=== PATIENT | female | born 1970 | race Caucasian/White ===

== ENCOUNTER 2019-01-08 14:51 | Emergency (ER) | payer OTHER, MEDICAID, SELFPAY ==
[2019-01-08 15:06] VITALS: BP 139/82; PULSE 61; RESP 16; O2SAT 96; BMI 29.2
--- NOTE | 2019-01-08 15:12 | DI.RAD.S_ITS ---
PROCEDURE: XR CHEST 1V INDICATIONS: chest pain TECHNIQUE: One view of the chest was acquired. COMPARISON: [facility], , CHEST 1 VIEW, 10/08/2014, 18:09. FINDINGS: Surgical changes and devices: None. Lungs and pleura: Lungs are clear. Ill-defined nodular opacity projecting over the right midlung probably superimposition of rib shadows No pleural effusions or pneumothorax. Mediastinum: Mediastinal contours appear normal. Heart size is normal. Bones and chest wall: No suspicious bony lesions. Overlying soft tissues appear unremarkable. IMPRESSION: No acute disease. Ill-defined nodular appearance projecting in the right midlung probably superimposition of shadows although this could be confirmed with PA and lateral chest radiographs. Dictated by: Anthony Dutton M.D. on 01/08/2019 at 15:32 Approved by: Anthony Dutton M.D. on 01/08/2019 at 15:34
--- NOTE | 2019-01-08 15:12 | DI.US.S_ITS ---
PROCEDURE: US ABDOMEN LIMITED INDICATIONS: RIGHT UPPER QUADRANT PAIN FOR 2 WEEKS TECHNIQUE: Real-time focused scanning was performed of the abdomen, with image documentation. COMPARISON: None. FINDINGS: The liver demonstrates increased size. The liver demonstrates generalized increased echogenicity. This decreases ultrasound sensitivity for detection of hepatic masses. Focal fatty sparing can be seen adjacent to the gallbladder. No findings of gallstones or sludge are seen. The gallbladder wall is not thickened, measuring 3 mm or less. No specific pericholecystic fluid is seen. The sonographic Chavez sign is negative. There is no biliary dilatation, the common bile duct measures 4-5 mm. The visualized pancreas is unremarkable. IMPRESSION: The gallbladder demonstrates a normal sonographic appearance. No biliary dilatation is seen. Prominent, fatty liver. Dictated by: Robert Stone M.D. on 01/08/2019 at 14:50 Approved by: Robert Stone M.D. on 01/08/2019 at 14:51
--- NOTE | 2019-01-08 15:19 | ED.ABDPAIN ---
HPI - Abdominal Pain <GARLAND Jefferson - Last Filed: 01/08/19 21:37> General Chief Complaint: Abdominal Pain Stated Complaint: right side abdominal pain x2 wks sent by [facility] Time Seen by Provider: 01/08/19 14:57 Source: patient Mode of arrival: ambulatory Limitations: no limitations History of Present Illness HPI narrative: Patient is a 48-year-old healthy female presents to the emergency department today complaining of right upper quadrant pain for the past 2 weeks. She states it is a dull 3/10 pain that is better when she sits straight up, she denies any aggravating symptoms such as eating. She also complains of left intermittent substernal chest pain that was a 2/10 that would spontaneously occur lasting 1-2 minute and then resolved, she states this pain happen for 3 days about 1 week ago and she has not had any chest pain signs. She also reports associated alternating constipation and diarrhea. Patient states that she has been remodeling her house for the past few months and has been breathing in a lot of fumes and paint chemicals. She denies any vision changes, neck pain, sore throat, eye discharge, coughing, shortness of breath, chest pain at this time, vomiting, nausea, fevers, chills or swelling of her legs. Patient was tearful during history and physical as she stated she was ?feeling like a hypochondriac and now she feels a lot better that she came to the emergency department ?. MD complaint: abdominal pain Onset (ago): week(s) Pain Consistency: constant Location: RUQ Radiation: none Relieving factors: other Exacerbating factors: nothing Related Data Allergies Allergy/AdvReac Type Severity Reaction Status Date / Time codeine [CODEINE] Allergy Unknown Verified 01/08/19 15:06 Review of Systems <GARLAND Jefferson - Last Filed: 01/08/19 21:37> Review of Systems REVIEW OF SYSTEMS: GENERAL: Denies fever, chills, malaise, or wt. loss. HENT: No head trauma, sore throat, or dysphagia. EYES: No loss of vision, double vision, eye pain, or irritation. CARDIOVASCULAR: Complains of chest pain, see HPI.. RESPIRATORY: No shortness of breath or cough. GASTROINTESTINAL: Complains of RUQ abdominal pain, see HPI GENITOURINARY: No flank pain, urinary incontinence, hesitancy, frequency, or dysuria. No vaginal discharge or dyspareunia. Denies concerns for STIs MUSCULOSKELETAL: No pain, weakness, or trauma. INTEGUMENTARY: No rash, lesions, or pruritus. NEURO: No numbness, tingling, memory loss, confusion, or headaches. PSYCH: No behavior or mood changes. PFSH <GARLAND Jefferson - Last Filed: 01/08/19 21:37> Medical History No significant medical problems (Acute) Social History Smoking Status: Never smoker Social History Smoking Status: Never smoker Exam <GARLAND Jefferson - Last Filed: 01/08/19 21:37> Initial Vital Signs Initial Vital Signs: Vital Signs Pulse Rate 61 01/08/19 15:06 Respiratory Rate 16 01/08/19 15:06 Blood Pressure 139/82 01/08/19 15:06 Pulse Oximetry 96 01/08/19 15:06 PHYSICAL EXAMINATION: GENERAL: Well groomed, alert, and cooperative. Tearful during examination. Answers questions promptly and appropriately. Vital signs noted. HENT: Normocephalic, atraumatic. Hearing intact. Oral mucosa is pink and moist. Oropharynx exhibits slight erythema consult are not visible. EYES: PERRLA, conjunctiva pink, sclera white, no periorbital swelling. CARDIOVASCULAR: S1 and S2 sounds normal. Regular rate and rhythm, no murmurs, clicks, or bruits. No pedal edema. RESPIRATORY: Normal respiratory rate, trachea midline, airway patent. No stridor, nasal flaring or accessory muscle use. Lungs are clear in all kirk without wheeze, rhonchi, or crackles. GASTROINTESTINAL: Bowel sounds normoactive. Abdomen is soft, pain was not reproduced for aggravated with palpation abdominal cavity especially right upper quadrant. No organomegaly, no palpable masses. GENITALURINARY: No flank tenderness. MUSCULOSKELETAL: No tenderness to palpation of ribs, sternum, or spine. Normal gait and coordination. Equal tone and mass bilaterally. EXTREMITIES: CMS intact, no pedal edema. SKIN: Warm, dry, soft, appropriate color for ethnicity. No lesions, rashes, or wounds. NEURO: Alert and Oriented X 3. Good coordination. No ataxia, or sensory deficits, or cognitive issues. PSYCH: Appropriate affect and mood. <Kristy Mitchell DO - Last Filed: 01/09/19 07:44> Initial Vital Signs Initial Vital Signs: Vital Signs Pulse Rate 61 01/08/19 15:06 Respiratory Rate 16 01/08/19 15:06 Blood Pressure 139/82 01/08/19 15:06 Pulse Oximetry 96 01/08/19 15:06 Course <GARLAND Jefferson - Last Filed: 01/08/19 21:37> Course Narrative: Patient states she was feeling slightly better after administration of Toradol, she states she feels significantly relieved to the the test results came back needed. Orders Ordered: Discontinued Medications Ketorolac Tromethamine (Toradol) 30 mg IV NOW ONE Stop: 01/08/19 17:11 Last Admin: 01/08/19 17:18 Dose: 30 mg Vital Signs - 8 hr 01/08/19 15:06 01/08/19 16:00 01/08/19 18:03 Pulse Rate 61 53 L 55 L Respiratory Rate 16 16 18 Blood Pressure 139/82 130/82 Blood Pressure [Left Arm] 154/88 H Pulse Oximetry 96 95 97 <Kristy Mitchell DO - Last Filed: 01/09/19 07:44> Orders Ordered: Discontinued Medications Ketorolac Tromethamine (Toradol) 30 mg IV NOW ONE Stop: 01/08/19 17:11 Last Admin: 01/08/19 17:18 Dose: 30 mg Vital Signs - 8 hr 01/08/19 15:06 01/08/19 16:00 01/08/19 18:03 Pulse Rate 61 53 L 55 L Respiratory Rate 16 16 18 Blood Pressure 139/82 130/82 Blood Pressure [Left Arm] 154/88 H Pulse Oximetry 96 95 97 MDM - Abdominal Pain <GARLAND Jefferson - Last Filed: 01/08/19 21:37> Medical Records Attestation: I reviewed the patient's medical records. Lab Data Attestation: I reviewed the patient's lab results. Result diagrams: 01/08/19 15:35 01/08/19 15:35 Lab Results 01/08/19 01/08/19 01/08/19 Range/Units 15:35 15:35 15:45 WBC 7.6 (4.5-11.0) X10^3/uL RBC 4.61 (4.0-5.2) X10^6/uL Hgb 13.9 (12.0-16.0) g/dL Hct 41.7 (36-46) % MCV 90.3 (80-100) fL MCH 30.2 (26-34) PG MCHC 33.4 (30-36) % RDW 12.8 (11.6-14.8) % Plt Count 330 (150-400) X10^3/uL Neut % (Auto) 58.6 (50-75) % Lymph % (Auto) 30.0 (25-40) % Emery % (Auto) 8.0 (3-14) % Eos % (Auto) 2.4 (2-4) % Baso % (Auto) 1.0 (0-2) % Neut # (Auto) 4400 (8111-6623) /uL Lymph # (Auto) 2300 (3098-5287) /uL Emery # (Auto) 600 (0-900) /uL Eos # (Auto) 200 (0-450) /uL Baso # (Auto) 100 (0-100) /uL Sodium 140 (137-145) mmol/L Potassium 4.0 (3.4-5.1) mmol/L Chloride 103 (98-107) mmol/L Carbon Dioxide 28 (22-32) mmol/L BUN 12 (7-17) mg/dL Creatinine 0.50 L (0.52-1.04) mg/dL Estimated GFR > 60.0 (>60) mL/min BUN/Creatinine Ratio 24.0 H (6-22) Glucose 102 H (70-100) mg/dL Calcium 9.4 (8.4-10.2) mg/dL Total Bilirubin 1.5 H (0.2-1.3) mg/dL AST 29 (14-36) IU/L ALT 40 (9-52) IU/L Alkaline Phosphatase 33 L (38-126) U/L Total Creatine Kinase 59 (30-135) U/L CK-MB (CK-2) TNP CK-MB (CK-2) Rel Index TNP Troponin I < 0.012 (0.01-0.034) ng/mL Total Protein 7.2 (6.3-8.2) g/dL Albumin 4.4 (3.5-5.0) g/dL Globulin 2.8 (1.7-4.1) g/dL Albumin/Globulin Ratio 1.6 (1.0-2.8) Lipase 104 (23-300) U/L Urine RBC 1-5/hpf (0-5/HPF) Urine WBC 1-5/hpf (0-5/HPF) Ur Squamous Epith Cells 0-1 /hpf (0-5/HPF) Amorphous Sediment 1+ Urine Bacteria Few (2-10) H (None) Urine Mucus 1+ H (Negative) Ur Culture Indicated? Specimen cultured Point of care testing: Urine Dip Bedside Urine Glucose Negative Bedside Urine Bilirubin - Negative Bedside Urine Ketone +/- 5 Urine Specific [place] 1.020 Bedside Urine Occult Blood + Bedside Urine pH 6.5 Bedside Urine Protein - Negative Bedside Urine Urobilinogen - Negative Bedside Urine Nitrite - Negative Bedside Urine Leukocytes ++ 125 Esterase Imaging Data AP Chest XR: Radiologist's impression: [address] [address] XRay Report Signed Patient: Cookie Mireles [facility]#: [id number] : 1970Acct:[id number] Age/Sex: 48 / FDate of Service: 01/08/19 Loc: ED Accession Number: [id number] Procedure: XR chest 1V Ordering Provider: Amie Adorno PROCEDURE: XR CHEST 1V INDICATIONS: chest pain TECHNIQUE: One view of the chest was acquired. COMPARISON: [facility] , CHEST 1 VIEW, 10/08/2014, 18:09. FINDINGS: Surgical changes and devices: None. Lungs and pleura: Lungs are clear. Ill-defined nodular opacity projecting over the right midlung probably superimposition of rib shadows No pleural effusions or pneumothorax. Mediastinum: Mediastinal contours appear normal. Heart size is normal. Bones and chest wall: No suspicious bony lesions. Overlying soft tissues appear unremarkable. IMPRESSION: No acute disease. Ill-defined nodular appearance projecting in the right midlung probably superimposition of shadows although this could be confirmed with PA and lateral chest radiographs. Dictated by: Anthony Dutton M.D. on 01/08/2019 at 15:32 Approved by: Anthony Dutton M.D. on 01/08/2019 at 15:34 Lateral Chest: Radiologist's impression: [address] [address] XRay Report Signed Patient: Cookie Mireles [facility]#: [id number] : 1970Acct:[id number] Age/Sex: 48 / FDate of Service: 01/08/19 Loc: ED Accession Number: [id number] Procedure: XR chest 1V Ordering Provider: Amie Adorno PROCEDURE: XR CHEST 1V INDICATIONS: Lateral view to r/o nodule seen on AP view TECHNIQUE: One view of the chest was acquired. COMPARISON: [facility] , XR CHEST 1V, 01/08/2019, 15:16. FINDINGS: Nodular density noted in near the inferior margin of the right scapula is not readily apparent on the lateral view. No effusion or obvious pneumothorax is evident. No compression deformities of the thoracic spine are appreciated. IMPRESSION: Nodular density is not apparent on the lateral view. A chest CT is recommended for further evaluation. Dictated by: Parminder Lopez M.D. on 01/08/2019 at 16:15 Approved by: Parminder Lopez M.D. on 01/08/2019 at 16:17 US - abdomen: Radiologist's impression: [address] [address] Ultrasound Report Signed Patient: Cookie Mireles [facility]#: [id number] : 1970Acct:[id number] Age/Sex: 48 / FDate of Service: 01/08/19 Loc: ED Accession Number: [id number] Procedure: US abdomen limited Ordering Provider: Amie Adorno PROCEDURE: US ABDOMEN LIMITED INDICATIONS: RIGHT UPPER QUADRANT PAIN FOR 2 WEEKS TECHNIQUE: Real-time focused scanning was performed of the abdomen, with image documentation. COMPARISON: None. FINDINGS: The liver demonstrates increased size. The liver demonstrates generalized increased echogenicity. This decreases ultrasound sensitivity for detection of hepatic masses. Focal fatty sparing can be seen adjacent to the gallbladder. No findings of gallstones or sludge are seen. The gallbladder wall is not thickened, measuring 3 mm or less. No specific pericholecystic fluid is seen. The sonographic Chavez sign is negative. There is no biliary dilatation, the common bile duct measures 4-5 mm. The visualized pancreas is unremarkable. IMPRESSION: The gallbladder demonstrates a normal sonographic appearance. No biliary dilatation is seen. Prominent, fatty liver. Dictated by: Robert Stone M.D. on 01/08/2019 at 14:50 Approved by: Robret Stone M.D. on 01/08/2019 at 14:51 ECG Data Interpretation: Sinus bradycardia, rate 59, TN interval 131, QTC 401, no ST depression or ST elevation, no abnormal T-wave inversion. No ectopy. EKG was also viewed by DR. Mitchell. Patient later had a 2nd episode of chest pain so an EKG was repeated: Sinus bradycardia, rate 56, TN interval 130, QTC [address] elevation or ST depression, no T-wave abnormal T, no ectopy. EKG was also viewed by Dr. Mitchell. MDM Narrative Medical decision making narrative: Differential includes costochondritis/musculoskeletal pain (most likely due to patient's report of construction and remodeling over the past few months, lack of other finding), less likely cholecystitis (negative ultrasound, normal labs, pain is not made worse with eating), less likely acute coronary syndrome (normal EKG, normal troponin, chest pain does not appear cardiac in nature from history, patient has very little risk factors). While the patient was diagnosed with fatty liver, I do not think this is the source is does not usually cause pain.. Strict return precautions given and follow-up instructions discussed. <Kristy Mitchell, DO - Last Filed: 01/09/19 07:44> Lab Data Lab Results 01/08/19 01/08/19 01/08/19 Range/Units 15:35 15:35 15:45 WBC 7.6 (4.5-11.0) X10^3/uL RBC 4.61 (4.0-5.2) X10^6/uL Hgb 13.9 (12.0-16.0) g/dL Hct 41.7 (36-46) % MCV 90.3 (80-100) fL MCH 30.2 (26-34) PG MCHC 33.4 (30-36) % RDW 12.8 (11.6-14.8) % Plt Count 330 (150-400) X10^3/uL Neut % (Auto) 58.6 (50-75) % Lymph % (Auto) 30.0 (25-40) % Emery % (Auto) 8.0 (3-14) % Eos % (Auto) 2.4 (2-4) % Baso % (Auto) 1.0 (0-2) % Neut # (Auto) 4400 (4113-1584) /uL Lymph # (Auto) 2300 (8568-6458) /uL Emery # (Auto) 600 (0-900) /uL Eos # (Auto) 200 (0-450) /uL Baso # (Auto) 100 (0-100) /uL Sodium 140 (137-145) mmol/L Potassium 4.0 (3.4-5.1) mmol/L Chloride 103 (98-107) mmol/L Carbon Dioxide 28 (22-32) mmol/L BUN 12 (7-17) mg/dL Creatinine 0.50 L (0.52-1.04) mg/dL Estimated GFR > 60.0 (>60) mL/min BUN/Creatinine Ratio 24.0 H (6-22) Glucose 102 H (70-100) mg/dL Calcium 9.4 (8.4-10.2) mg/dL Total Bilirubin 1.5 H (0.2-1.3) mg/dL AST 29 (14-36) IU/L ALT 40 (9-52) IU/L Alkaline Phosphatase 33 L (38-126) U/L Total Creatine Kinase 59 (30-135) U/L CK-MB (CK-2) TNP CK-MB (CK-2) Rel Index TNP Troponin I < 0.012 (0.01-0.034) ng/mL Total Protein 7.2 (6.3-8.2) g/dL Albumin 4.4 (3.5-5.0) g/dL Globulin 2.8 (1.7-4.1) g/dL Albumin/Globulin Ratio 1.6 (1.0-2.8) Lipase 104 (23-300) U/L Urine RBC 1-5/hpf (0-5/HPF) Urine WBC 1-5/hpf (0-5/HPF) Ur Squamous Epith Cells 0-1 /hpf (0-5/HPF) Amorphous Sediment 1+ Urine Bacteria Few (2-10) H (None) Urine Mucus 1+ H (Negative) Ur Culture Indicated? Specimen cultured Point of care testing: Urine Dip Bedside Urine Glucose Negative Bedside Urine Bilirubin - Negative Bedside Urine Ketone +/- 5 Urine Specific [place] 1.020 Bedside Urine Occult Blood + Bedside Urine pH 6.5 Bedside Urine Protein - Negative Bedside Urine Urobilinogen - Negative Bedside Urine Nitrite - Negative Bedside Urine Leukocytes ++ 125 Esterase Discharge Plan Departure Patient Disposition: Home Clinical Impression: Abdominal pain Qualifiers: Abdominal location: generalized Qualified Code(s): R10.84 - Generalized abdominal pain Discharge Date/Time: 01/08/19 18:03 Interventions: ED Discharge Assessment Last Done: 01/08/19 18:03 Instructions: DI for Abdominal Pain-Adult Activity Restrictions/Additional Instructions: Thank you for entrusting me with your care today. As discussed, your lab and ultrasound work showed that you have a fatty liver, please follow up with her primary care provider for further testing if needed. Your EKG, urinalysis, and chest x-ray did not show any acute findings. Return to the emergency department if you experience severe chest pain, shortness of breath, syncope, high fevers, severe abdominal pain, or uncontrollable vomiting. <Kristy Mitchell, - Last Filed: 01/09/19 07:44> Cosign ED Attending [place]ger Attestation: I was immediately available in the department for consultation. Documentation has been reviewed. I agree with assessment and plan.
[2019-01-08 15:45] LABS: Add Manual Diff / Slide Review NO; Basophils Absolute Auto 100 /uL (0-100); Eosinophils Absolute Auto 200 /uL (0-450); Eosinophils Percent Auto 2.4 % (2-4); Hematocrit 41.7 % (36-46); Hemoglobin 13.9 g/dL (12.0-16.0); Lymphocytes Absolute Auto 2300 /uL (1100-4500); Mean Corpuscular HGB Conc 33.4 % (30-36); Mean Corpuscular Hemoglobin 30.2 PG (26-34); Mean Corpuscular Volume 90.3 fL (80-100); Monocytes Absolute Auto 600 /uL (0-900); Neutrophils Absolute Auto 4400 /uL (1500-7000); Neutrophils Percent Auto 58.6 % (50-75); Platelet Count 330 X10^3/uL (150-400); Red Blood Cell Count 4.61 X10^6/uL (4.0-5.2); Red Cell Distribution Width 12.8 % (11.6-14.8); White Blood Cell Count 7.6 X10^3/uL (4.5-11.0)
[2019-01-08 16:00] VITALS: BP 154/88; PULSE 53; RESP 16; O2SAT 95
[2019-01-08 16:02] LABS: Alanine Aminotransferase 40 IU/L (9-52); Albumin 4.4 g/dL (3.5-5.0); Albumin Globulin Ratio 1.6 (1.0-2.8); Alkaline Phosphatase 33 U/L (38-126); Aspartate Aminotransferase 29 IU/L (14-36); Bilirubin Total 1.5 mg/dL (0.2-1.3); Blood Urea Nitrogen 12 mg/dL (7-17); Calcium 9.4 mg/dL (8.4-10.2); Carbon Dioxide 28 mmol/L (22-32); Chloride 103 mmol/L (98-107); Creatine Kinase 59 U/L (30-135); Estimated Glomerular Filt Rate > 60.0 mL/min (>60); Globulin 2.8 g/dL (1.7-4.1); Glucose 102 mg/dL (70-100); HEMOLYSIS < 15 (0-50); Lipase 104 U/L (23-300); Sodium 140 mmol/L (137-145); Total Protein 7.2 g/dL (6.3-8.2)
[2019-01-08 16:12] LABS: Troponin I < 0.012 ng/mL (0.01-0.034)
--- NOTE | 2019-01-08 16:56 | DI.RAD.S_ITS ---
PROCEDURE: XR CHEST 1V INDICATIONS: Lateral view to r/o nodule seen on AP view TECHNIQUE: One view of the chest was acquired. COMPARISON: [facility], CR, XR CHEST 1V, 01/08/2019, 15:16. FINDINGS: Nodular density noted in near the inferior margin of the right scapula is not readily apparent on the lateral view. No effusion or obvious pneumothorax is evident. No compression deformities of the thoracic spine are appreciated. IMPRESSION: Nodular density is not apparent on the lateral view. A chest CT is recommended for further evaluation. Dictated by: Parminder Lopez M.D. on 01/08/2019 at 16:15 Approved by: Parminder Lopez M.D. on 01/08/2019 at 16:17
[2019-01-08] MEDS: KETOROLAC 60 MG/2 ML VIAL 30 MG IV (17:18)
[2019-01-08 17:20] LABS: RBC Urine 1-5/HPF (0-5/HPF); Squamous Epithelial Cell Urine 0-1 /HPF (0-5/HPF); WBC Urine 1-5/HPF (0-5/HPF)
[2019-01-08 17:21] LABS: Amorphous Sediment Urine 1+; Bacteria Urine Few (2-10); Culture Indicated Urine Specimen Cultured; Mucus Urine 1+ (Negative)
--- NOTE | 2019-01-08 17:27 | PC.NURSE ---
Patient began complaining of mild left sided chest discomfort worse with deep breaths. GARLAND benito, 2nd EKG ordered at this time.
[2019-01-08 18:03] VITALS: BP 130/82; PULSE 55; RESP 18; O2SAT 97
== END 2019-01-08 18:03 | disposition home or self-care (01) ==
PROVIDERS: Emergency Provider Nurse Practitioner
DX: R10.84 Generalized abdominal pain (principal); R00.1 Bradycardia, unspecified; R07.9 Chest pain, unspecified
CPT/HCPCS: 36591; 71045; 76705; 80053; 81003; 81015; 82550; 83690; 84484; 85025; 87077; 87086; 87147; 93005; 96374; 99283; 99285; J1885

== ENCOUNTER → 2023-12-23 17:09 | Outpatient (CLI) | payer OTHER, MEDICAID, SELFPAY ==
[2023-12-23 17:59] LABS: Influenza A - CEPHEID Flu A NEGATIVE (NEGATIVE); Influenza B - CEPHEID Flu B NEGATIVE (NEGATIVE); Respiratory Syncytial Virus Negative (Negative)
[2023-12-23 18:07] LABS: COVID-19 CEPHEID 4-PLEX PCR Negative (Negative)
== END ==
PROVIDERS: Visit Provider Student in an Organized Health Care Education/Training Program
DX: R50.9 Fever, unspecified (principal)
CPT/HCPCS: 87635; 87400 ×2; 87420; 0241U